=== PATIENT | male | born 1970 | race Caucasian/White ===

== ENCOUNTER 2024-04-16 11:07 | Emergency (ER) | payer SELFPAY ==
[2024-04-16 11:10] VITALS: BP 135/82; PULSE 51; RESP 16; TEMP 36.8; O2SAT 98; BMI 25.8
--- NOTE | 2024-04-16 12:03 | PC.PHAR ---
patient is very confused at this time, states hes supposed to be taking something for his heart but is unsure. called pharmacy and they havent filled anything for him this past 6 months. in September they filled atenolol 50mg= 30days atorvastatin 40mg=30 days duloxetine 30 mg = 30 days
--- NOTE | 2024-04-16 12:04 | ED.C_ITS ---
HPI - Psych 2 General: Chief Complaint: Psychiatric Symptoms Stated Complaint: MHE Time Seen by Provider: 04/16/24 11:22 History of Present Illness: 53-year-old man who [facility] with anxiety and difficulty sleeping. He says he had an breakdown earlier. He says he is not homicidal or suicidal. says he has been acting strange and she is worried he might of had a stroke. We discussed doing a medical clearance workup to rule out any underlying pathologies. He has no focal motor deficits. He is alert and oriented now but is a little bit agitated. No chest pain. No abdominal pain. No nausea or vomiting. Related Data Home Medications Medication Instructions Recorded Confirmed No Known Home Medications 04/16/24 04/16/24 Allergies Allergy/AdvReac Type Severity Reaction Status Date / Time Penicillins Allergy Unknown Verified 04/16/24 11:16 Review of Systems 2 Narrative: Constitutional symptoms: Negative except as documented in HPI. Skin symptoms: Negative except as documented in HPI. Eye symptoms: Negative except as documented in HPI. ENMT symptoms: Negative except as documented in HPI. Respiratory symptoms: Negative except as documented in HPI. Cardiovascular symptoms: Negative except as documented in HPI. Gastrointestinal symptoms: Negative except as documented in HPI. Genitourinary symptoms: Negative except as documented in HPI. Musculoskeletal symptoms: Negative except as documented in HPI. Neurologic symptoms: Negative except as documented in HPI. Psychiatric symptoms: Negative except as documented in HPI. Endocrine symptoms: Negative except as documented in HPI. Physical Exam 2 Narrative: EXAM NARRATIVE: General: Alert, no acute distress. Skin: Warm, dry. Head: Normocephalic, atraumatic. Neck: Supple, trachea midline. Eye: Extraocular movements are intact. Ears, nose, mouth and throat: mucosa moist. Cardiovascular: Regular, Normal peripheral perfusion. Respiratory: Lungs are clear to auscultation, respirations are non-labored, breath sounds are equal, Symmetrical chest wall expansion. Gastrointestinal: Soft, Nontender, Non distended Musculoskeletal: Normal ROM, no deformity. Neurological: Alert and oriented, No focal neurological deficit observed. Psychiatric: Cooperative, odd affect, anxious. Course 2 Vital Signs: Vital signs: Vital Signs Temperature 98.2 F 04/16/24 11:10 Pulse Rate 51 L 04/16/24 11:10 Respiratory Rate 16 04/16/24 11:10 Blood Pressure 135/82 04/16/24 11:10 Pulse Oximetry 98 04/16/24 11:10 Oxygen Delivery Me thod Room Air 04/16/24 11:10 MDM - Psych Medical Decision Making Medical decision making: Differential diagnosis including but not limited to and based on the above HPI, review of systems and physical exam: Rule out any underlying etiologies that might result in the patient's insomnia and agitation. Basically a psychiatric workup for medical clearance. CT of the head to rule out stroke. Urinalysis to rule out drug use and infection. Orders placed to evaluate differential diagnosis based on the above differential, HPI and physical exam EKG: Time 1232. Rate 47. Sinus bradycardia, No ST-T changes, no ectopy, normal NV & QRS intervals, This was reviewed and interpreted by myself the ER physician at 1238. CT head: No acute intracranial process. no intracranial hemorrhage, no evidence of infarct. no evidence of acute fracture.This was reviewed and interpreted by myself the ER physician. Lab Review: Laboratory results were reviewed and interpreted by myself the emergency room physician. Lab work is unremarkable. No leukocytosis. No anemia. No renal failure. Urine is clear of infection. No drugs in the drug screen. Alcohol level is negative. I reviewed the patient's medical record. Reexamination: Patient remained stable. No increased work of breathing. No altered mental status. No focal motor deficits. Patient continues had no homicidal or suicidal ideations. Assessment and plan: Anxiety Insomnia - Discharged home - Discussed findings and plan with patient. Answered any questions. - All laboratory values were reviewed and interpreted personally by myself, the ER physician - All imaging was reviewed and interpreted personally by myself, the ER physician. - Evaluation and treatment of this problem were appropriate in the emergency setting Lab Data 04/16/24 14:25 04/16/24 14:[address] 04/16/24 12:28 IMPRESSION: 1. No CT evidence of acute intracranial pathology. 2. Additional findings, as above. Laboratory Results WBC 8.58 10^3/uL (3.29-11.43) 04/16/24 14:25 RBC 4.64 10^6/uL (3.85-5.65) 04/16/24 14:25 Hgb 14.60 g/dL (11.27-16.99) 04/16/24 14:25 Hct 43.6 % (37-53) 04/16/24 14:25 MCV 94.0 fl (82-101) 04/16/24 14:25 MCH 31.5 pg (27-33) 04/16/24 14:25 MCHC 33.5 g/dL (30-55) 04/16/24 14:25 RDW 12.4 % (12.1-15.1) 04/16/24 14:25 Plt Count 197 10^3/cmm (157-399) 04/16/24 14:25 MPV 10.4 fL (7.4-10.4) 04/16/24 14:25 Neut % (Auto) 62.9 % 04/16/24 14:25 Lymph % (Auto) 26.9 % 04/16/24 14:25 Dent % (Auto) 7.2 % 04/16/24 14:25 Eos % (Auto) 2.6 % 04/16/24 14:25 Baso % (Auto) 0.2 % 04/16/24 14:25 Neut # (Auto) 5.39 10^3/uL (1.8-7.7) 04/16/24 14:25 Lymph # (Auto) 2.3 10^3/uL (0.8-4.8) 04/16/24 14:25 Dent # (Auto) 0.6 10^3/uL (0.2-0.9) 04/16/24 14:25 Eos # (Auto) 0.2 10^3/uL (0.0-0.8) 04/16/24 14:25 Baso # (Auto) 0.0 10^3/uL (0.0-0.1) 04/16/24 14:25 Nucleated RBC % (auto) 0 % 04/16/24 14:25 Nucleated RBCs # 0.0 /100WBC 04/16/24 14:25 Sodium 139 mmol/L (136-145) 04/16/24 14:25 Potassium 4.7 mmol/L (3.5-5.1) 04/16/24 14:25 Chloride 103 mmol/L (98-107) 04/16/24 14:25 Carbon Dioxide 28 mmol/L (22-29) 04/16/24 14:25 Anion Gap 12.7 (5-19) 04/16/24 14:25 BUN 11 mg/dL (6-20) 04/16/24 14:25 Creatinine 1.1 mg/dL (0.7-1.2) 04/16/24 14:25 GFR Calculation 70.3 mL/min (90-130) L 04/16/24 14:25 Glucose 100 mg/dL (65-115) 04/16/24 14:25 Calculated Osmolality 287 mOsm/kg (285-295) 04/16/24 14:25 Calcium 9.3 mg/dL (8.5-10.5) 04/16/24 14:25 Total Bilirubin 0.6 mg/dL (0.15-1.2) 04/16/24 14:25 AST 27 U/L (0-40) 04/16/24 14:25 ALT 33 U/L (0-41) 04/16/24 14:25 Alkaline Phosphatase 45 U/L (40-130) 04/16/24 14:25 Ammonia 15 umol/L (16-60) L 04/16/24 14:25 Total Protein 6.8 g/dL (6.6-8.7) 04/16/24 14:25 Albumin 4.5 g/dL (3.5-5.2) 04/16/24 14:25 Globulin 2.3 g/dL (1.3-4.6) 04/16/24 14:25 TSH 1.14 uIU/mL (0.27-4.20) 04/16/24 14:25 Urine Color Yellow (Yellow) 04/16/24 11:58 Urine Appearance Clear (CLEAR) 04/16/24 11:58 Urine pH 7.5 (5-7) 04/16/24 11:58 Ur Specific [place] 1.010 (1.005-1.030) 04/16/24 11:58 Urine Protein Negative (Negative) 04/16/24 11:58 Urine Glucose (UA) Negative (Normal) 04/16/24 11:58 Urine Ketones Negative (Negative) 04/16/24 11:58 Urine Blood Negative (Negative) 04/16/24 11:58 Urine Nitrate Negative (Negative) 04/16/24 11:58 Urine Bilirubin Negative (Negative) 04/16/24 11:58 Urine Urobilinogen 1.0 mg/dL (Negative) 04/16/24 11:58 Ur Leukocyte Esterase Negative (Negative) 04/16/24 11:58 Urine RBC 0-2 /hpf (0-2) 04/16/24 11:58 Urine WBC 0-5 /hpf (0-5) 04/16/24 11:58 Ur Squamous Epith Cells 0-5 /hpf (0-5) 04/16/24 11:58 Amorphous Sediment Not Reportable 04/16/24 11:58 Urine Bacteria None seen /hpf (NONE) 04/16/24 11:58 Hyaline Casts 0-4 /lpf H 04/16/24 11:58 Salicylates < 0.3 mg/dL (3-10) L 04/16/24 14:25 Urine Opiates Screen Negative ng/mL (Negative) 04/16/24 11:58 Acetaminophen < 5.0 ug/mL (10-30) L 04/16/24 14:25 Ur Barbiturates Screen Negative ng/mL (Negative) 04/16/24 11:58 Ur Phencyclidine Scrn Negative ng/mL (Negative) 04/16/24 11:58 Ur Amphetamines Screen Negative ng/mL (Negative) 04/16/24 11:58 U Benzodiazepines Scrn Negative ng/mL (Negative) 04/16/24 11:58 Urine Cocaine Screen Negative ng/mL (Negative) 04/16/24 11:58 U Marijuana (THC) Screen Negative ng/mL (Negative) 04/16/24 11:58 Ethyl Alcohol < 10 mg/dL (0-10) 04/16/24 14:25 All radiology interpretation(s) finalized by discharge Discharge Plan Discharge Patient Disposition: Home Clinical Impression: Acute anxiety, Insomnia Condition: Stable Prescriptions: No Action No Known Home Medications Discharge Orders: Discharge ED (Routine); Ordered 04/16/24 Ordered By: Hailee Cho Discharge Diet: Usual diet Discharge Activity: Resume usual activity Patient Instructions: Opioid Safety, Pain Management Activity Restrictions/Additional Instructions: Please follow-up with the [facility] behavioral health crisis center tomorrow or the next day. Phone number is [phone]. There is a 24-hour crisis hotline with the number of [phone]. Hours of operation are 8 AM to 6 PM. Thank you for choosing [facility] for your healthcare needs today. Please realize this is an emergency room and that we are providing you with a medical screening exam and this may not be complete and all inclusive of all the testing and or work up that you may need to determine your ailment or severity of your illness. You have been screened and evaluated and felt safe for discharge. Health conditions do change or evolve sometimes and as such it is important that you follow up with your Primary Doctor to be re checked, 3-5 days is a general good time frame for follow up. You are always welcome to return to the ED for re assessment if your symptoms are worsening or you have new concerns Coding Level of Care Code ED Slope Hoist Operator for Sergio Ochoa
--- NOTE | 2024-04-16 12:28 | CTR_ITS ---
PROCEDURE INFORMATION: Exam: CT Head Without Contrast Exam date and time: 04/16/2024 12:42 PM Age: 53 years old Clinical indication: Altered mental status/memory loss; Confusion or disorientation; Additional info: Encephalopathy, altered mental status TECHNIQUE: Imaging protocol: Computed tomography of the head without contrast. Axial, coronal and sagittal reformatted images were created and reviewed. Radiation optimization: All CT scans at this facility use at least one of these dose optimization techniques: automated exposure control; mA and/or kV adjustment per patient size (includes targeted exams where dose is matched to clinical indication); or iterative reconstruction. COMPARISON: No relevant prior studies available. RADIATION DOSE METRICS: Total DLP (mGy-cm): 1077.68 FINDINGS: Brain: No CT evidence of acute intracranial hemorrhage or acute territorial infarction. No significant mass effect or midline shift. Basal cisterns patent. Cerebral ventricles: Normal in size and configuration. Paranasal sinuses: Mild ethmoid and maxillary sinus mucosal thickening. No air-fluid levels. Mastoid air cells: Grossly unremarkable. Bones: Unremarkable. No acute fracture. Soft tissues: Grossly unremarkable. CT/CT head wo con* [id number] IMPRESSION: 1. No CT evidence of acute intracranial pathology. 2. Additional findings, as above.
--- NOTE | 2024-04-16 12:32 | ECG_ITS ---
[employer] Test Date: 2024-04-16 Pat Name: Josh Villa Department: Room: Gender: Male Head Grinder: : 1970 Requested By: Hailee Bustamante Order Number: [id number] Rom MD: NATHAN DAMON Measurements Intervals [place] Rate: 47 P: 42 [place]: 141 QRS: 21 QRSD: 93 T: 29 QT: 417 QTc: 371 Interpretive Statements SINUS BRADYCARDIA INCOMPLETE RIGHT BUNDLE BRANCH BLOCK [90+ ms QRS DURATION, TERMINAL R IN V1/V2, 40+ ms S IN I/aVL/V4/V5/V6] No previous ECG available for comparison Electronically Signed On 04-17-2024 00:21:50 PAVING INSPECTOR by NATHAN DAMON [email or web address]
[2024-04-16 13:07] LABS: Bilirubin Urine Negative (Negative); Blood Urine Negative (Negative); Glucose Urine UA Negative (Normal); Ketones Urine Negative (Negative); Leukocyte Esterase Urine Negative (Negative); Nitrate Urine Negative (Negative); Protein Urine Negative (Negative); Urine Appearance Clear (CLEAR); Urine Color Yellow (Yellow); pH Urine 7.5 (5-7)
[2024-04-16 13:10] LABS: Bacteria Urine None Seen /hpf; Hyaline Casts Urine 0-4 /lpf; RBC Urine 0-2 /hpf (0-2); Squamous Epithelial Cell Urine 0-5 /hpf (0-5); WBC Urine 0-5 /hpf (0-5)
[2024-04-16 13:25] LABS: Amphetamines Screen Urine Negative (Negative); Barbiturates Screen Urine Negative (Negative); Benzodiazepines Screen Urine Negative (Negative); Cocaine Screen Urine Negative (Negative); Opiate Screen Urine Negative (Negative); PCP Screen Urine Negative (Negative); THC Screen Urine Negative (Negative)
[2024-04-16 14:31] LABS: Basophils % 0.2 %; Eosinophils # 0.2 10^3/uL (0.0-0.8); Eosinophils % 2.6 %; Hematocrit 43.6 % (37-53); Lymphocytes # 2.3 10^3/uL (0.8-4.8); Lymphocytes % 26.9 %; Mean Corpuscular HGB Conc 33.5 g/dL (30-55); Mean Corpuscular Hemoglobin 31.5 pg (27-33); Mean Platelet Volume 10.4 fL (7.4-10.4); Monocytes # 0.6 10^3/uL (0.2-0.9); Monocytes % 7.2 %; Neutrophils # 5.39 10^3/uL (1.8-7.7); Neutrophils % 62.9 %; Nucleated Red Blood Cells % 0 %; Platelet Count 197 10^3/cmm (157-399); Red Blood Count 4.64 10^6/uL (3.85-5.65); Red Cell Distribution Width 12.4 % (12.1-15.1); White Blood Count 8.58 10^3/uL (3.29-11.43)
[2024-04-16 14:58] LABS: Ammonia 15 umol/L (16-60)
[2024-04-16 15:08] LABS: Alanine Aminotransferase 33 U/L (0-41); Albumin Level 4.5 g/dL (3.5-5.2); Alkaline Phosphatase 45 U/L (40-130); Anion Gap 12.7 (5-19); Aspartate Amino Transferase 27 U/L (0-40); Blood Urea Nitrogen 11 mg/dL (6-20); Calcium 9.3 mg/dL (8.5-10.5); Carbon Dioxide 28 mmol/L (22-29); Chloride 103 mmol/L (98-107); Creatinine Clr Calc Pharmacy 79.8716; Globulin 2.3 g/dL (1.3-4.6); Glomerular Filtration Rate 70.3 mL/min (90-130); Glucose 100 mg/dL (65-115); Osmolality Calculated 287 mOsm/kg (285-295); Potassium 4.7 mmol/L (3.5-5.1); Sodium 139 mmol/L (136-145); Thyroid Stimulating Hormone 1.14 uIU/mL (0.27-4.20); Total Bilirubin 0.6 mg/dL (0.15-1.2); Total Protein 6.8 g/dL (6.6-8.7)
[2024-04-16 15:09] LABS: Acetaminophen < 5.0 ug/mL (10-30); Alcohol Level < 10 mg/dL (0-10); Salicylate < 0.3 mg/dL (3-10)
[2024-04-16] MEDS: LORazepam 1 mg Tablet PO (16:06)
[2024-04-16 16:07] VITALS: BP 137/79; PULSE 58; O2SAT 99
== END 2024-04-16 16:07 | disposition home or self-care (01) ==
PROVIDERS: Emergency Provider Emergency Medicine
DX: F41.9 Anxiety disorder, unspecified (principal); G47.00 Insomnia, unspecified
CPT/HCPCS: 36415; 70450; 80053; 80306; 80307; 81001; 82140; 84443; 85025; 93005; 99284